=== PATIENT | female | born 1975 | race Caucasian/White ===

== ENCOUNTER 2017-08-03 14:24 | Emergency (ER) | payer OTHER ==
[~2017-08-03] VITALS: Ht 154.9 cm; Wt 85.7 kg
[2017-08-03] MEDS ORDERED: ZITHROMAX250 MG PO (15:04)
[2017-08-03] MEDS ORDERED: KETOROLAC TROME10 MG PO (15:04)
[2017-08-03] MEDS ORDERED: BACLOFEN10 MG PO (15:04)
== END 2017-08-03 15:19 | disposition home or self-care (01) ==
LOC: ED 14:24
DX: J06.9 Acute upper respiratory infection, unspecified (principal); M99.02 Segmental and somatic dysfunction of thoracic region; F17.200 Nicotine dependence, unspecified, uncomplicated
CPT/HCPCS: 99283

== ENCOUNTER 2019-05-02 20:57 | Emergency (ER) | payer OTHER ==
[~2019-05-02] VITALS: Ht 154.9 cm; Wt 85.7 kg
[~2019-05-02 20:57] MED LIST: BACLOFEN10 MG PO; KETOROLAC TROME10 MG PO; ZITHROMAX250 MG PO
--- OUTSIDE RECORDS SUMMARY | 2019-05-02 21:00 | XMS ---
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 EMarci VISIT COUNT (12 MO.) 1 AYDEN Abebe TOTAL 1 NOTE: Visits indicate total known visits. ED/UCC VISIT TRACKING (12 MO.) 05/02/2019 20:[address] [facility] TYPE: Emergency COMPLAINT: - FEVER,DIARRHEA,POSS DEHYDRATION INPATIENT VISIT TRACKING (12 MO.) No inpatient visits to display in this time frame [email or web address]
[2019-05-02] MEDS ORDERED: LEXAPRO10 MG PO (21:19)
[2019-05-02] MEDS ORDERED: CEPHALEXIN500 MG PO (23:28)
== END 2019-05-03 00:04 | disposition home or self-care (01) ==
LOC: ED 20:57
DX: N39.0 Urinary tract infection, site not specified (principal); F17.200 Nicotine dependence, unspecified, uncomplicated; F32.9 Major depressive disorder, single episode, unspecified; F41.9 Anxiety disorder, unspecified; Z79.899 Other long term (current) drug therapy
CPT/HCPCS: 80053; 81001; 83605; 83690; 84703; 85025; 96361; 96365; 96375; 99284-25; J0696; J2405; J7030